=== PATIENT | female | born 1970 | race Caucasian/White ===

== ENCOUNTER 2017-12-05 20:20 | Emergency (ER) | payer OTHER ==
[~2017-12-05] VITALS: Ht 167.6 cm; Wt 69.5 kg
[~2017-12-05 20:20] MED LIST: CIPRO500 MG PO; CIPROFLOXACIN500 M1 PO; CYMBALTA60 MG PO; FLAGYL500 MG PO; HYDROXYZINE HCL25 MG PO; LABETALOL HCL100 MG PO; MELOXICAM15 MG PO; METHOCARBAMOL500 MG PO; METRONIDAZOLE500 MG PO; MORPHINE SULFAT60 MG PO; ONDANSETRON ODT4 MG PO; PANTOPRAZOLE SO40 MG PO; PERCOCET 10/1 TABLET PO; PROTONIX40 MG PO; ZOFRAN ODT4 MG PO; ZOFRAN4 MG PO
[2017-12-05 21:37] LABS: HEMATOCRIT 37.2 % (36.0-46.0); HEMOGLOBIN 12.5 G/DL (11.9-15.5); MCH 29.1 PG (29.0-34.0); MCHC 33.6 G/DL (30.0-36.0); MCV 86.7 FL (83-99); PLATELET COUNT 163 K/uL (156-360); RBC DIS.WIDTH-SD 54.5 % (39-53); RED BLOOD COUNT 4.29 M/uL (3.80-5.20); WHITE BLOOD COUNT 10.6 K/uL (4.1-10.2)
[2017-12-05 21:47] LABS: ALBUMIN 3.6 g/dL (3.2-4.8); CHLORIDE 107 mEq/L (99-109); POTASSIUM 4.4 mEq/L (3.7-5.4); SODIUM 141 mEq/L (136-147)
[2017-12-05 21:49] LABS: GLUCOSE 98 mg/dL (70-99); TOTAL PROTEIN 5.9 g/dL (6.4-8.3)
[2017-12-05 21:51] LABS: TOTAL BILIRUBIN 0.2 mg/dL (0.0-1.0)
[2017-12-05 21:53] LABS: ALKALINE PHOSPHATASE 79 IU/L (3-129); CREATININE 0.8 mg/dL (0.6-1.3); GFR ESTIMATE (CALCULATED) > 59 mL/min/
[2017-12-05 21:54] LABS: AST (GOT) 14 IU/L (2-34); UREA NITROGEN (BUN) 6 mg/dL (9-23)
[2017-12-05 21:56] LABS: ALT (GPT) 6 IU/L (3-49)
[2017-12-05 22:03] LABS: TROP-I INTERPRETATION NEGATIVE; TROPONIN-I < 0.01 ng/mL (0.0-0.30)
[2017-12-06 01:39] VITALS: BP 123/87
== END 2017-12-06 01:40 | disposition home or self-care (01) ==
LOC: EME 20:20 → EXP 20:20
PROVIDERS: Physician Assistant
DX: S22.41XA Multiple fractures of ribs, right side, initial encounter for closed fracture (principal); W18.30XA Fall on same level, unspecified, initial encounter; G89.29 Other chronic pain; Z79.891 Long term (current) use of opiate analgesic; F17.200 Nicotine dependence, unspecified, uncomplicated
CPT/HCPCS: 71046; 71275; 80053; 84484; 85027; 85379; 93005; 99281; 99285